=== PATIENT | male | born 1940 | race Caucasian/White ===

== ENCOUNTER → 2019-08-08 | Outpatient (CLI) | payer MEDICARE, BC ==
[2019-08-08 20:43] LABS: HIV 1 AB Non-Reactive (Non-Reactive); HIV 2 AB Non-Reactive (Non-Reactive); HIV AB P24 Non-Reactive (Non-Reactive); HIV P24 AG Non-Reactive (Non-Reactive)
[2019-08-08 20:53] LABS: Hepatitis A Antibody IgM Non-Reactive (Non-Reactive); Hepatitis B Surface Antigen Non-Reactive (Non-Reactive); Hepatitis C IgG Antibody Non-Reactive (Non-Reactive)
== END | disposition home or self-care (01) ==
LOC: LABWHC1 10:55
PROVIDERS: ATTEND Internal Medicine Gastroenterology
DX: K52.9 Noninfective gastroenteritis and colitis, unspecified (principal); A04.71 Enterocolitis due to Clostridium difficile, recurrent; Z52.9 Donor of unspecified organ or tissue
CPT/HCPCS: 36415; 86709; 86780; 86803; 87340; 87390

== ENCOUNTER → 2021-06-02 | Outpatient (CLI) | payer MEDICARE, BC ==
--- NOTE | 2021-06-02 11:54 | XR ---
EXAMINATION TYPE: XR wrist complete LT DATE OF EXAM: 06/02/2021 COMPARISON: None HISTORY: Left wrist pain TECHNIQUE: 4 view left wrist FINDINGS: Degenerative joint changes are present through the radial carpal junction. Degenerative car pal joint changes are evident. On the navicular view, there is some slight increased scapholunate space is 0.4 cm. Scapholunate disa ssociation is not excluded. The cyst appears to be within the distal scaphoid. No acute fractures are evident. The soft tissues may have mild prominence. IMPRESSION: 1. 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 No acute osseous abnormality evident. 2. Scapholunate disassociation not entirely excluded. This could be further evaluated with MRI.
[2021-06-02 19:43] LABS: Basophils # (A) 0.05 X 10*3/uL (0.00-0.10); Eosinophils # (A) 0.51 X 10*3/uL (0.04-0.35); Eosinophils % (A) 10.5 %; HCT 41.6 % (39.6-50.0); HGB 13.5 g/dL (13.0-17.0); Lymphocytes % (A) 22.5 %; MCH 32.4 pg (27.0-32.0); MCHC 32.5 g/dL (32.0-37.0); MCV 99.8 fL (80.0-97.0); Mean Platelet Volume 10.3 fL (9.5-12.2); Monocytes # (A) 0.57 X 10*3/uL (0.20-1.00); Monocytes % (A) 11.7 %; Neutrophils # (A) 2.64 X 10*3/uL (1.80-7.70); Neutrophils % (A) 54.1 %; Platelet Count 304 X 10*3/uL (140-440); RBC 4.17 X 10*6/uL (4.40-5.60); RDW 12.4 % (11.5-14.5); WBC 4.88 X 10*3/uL (4.50-10.00)
[2021-06-03 02:28] LABS: African American GFR (CKD) 66.7 (60.0-200.0); Albumin 4.2 g/dL (3.80-4.90); Albumin/Globulin Ratio 1.68 (1.60-3.17); Anion Gap 9.9 mmol/L (4.00-12.00); BUN/Creat Ratio 19.17 Ratio (12.00-20.00); Calcium 9.6 mg/dL (8.7-10.3); Carbon Dioxide 22.1 mmol/L (21.6-31.8); Chol/HDL Ratio 3.13; Globulin 2.5 g/dL (1.6-3.3); LDL Cholesterol,Calculated 79.2 mg/dL (0.0-131.0); Non-African American GFR(CKD) 57.6 (60.0-200.0); Potassium 4.5 mmol/L (3.5-5.5); Total Bilirubin 0.6 mg/dL (0.2-1.2); Total Protein 6.7 g/dL (6.2-8.2); VLDL Calculation 18.8 mg/dL (5.00-40.00)
[2021-06-03 02:59] LABS: Folate, Serum 17.4 ng/mL; PSA Annual Screen 10.2 ng/mL (0.0-4.0)
== END | disposition home or self-care (01) ==
LOC: LABWHC1 10:17
PROVIDERS: ATTEND Internal Medicine
DX: Z12.5 Encounter for screening for malignant neoplasm of prostate (principal); E03.9 Hypothyroidism, unspecified; E53.8 Deficiency of other specified B group vitamins; E55.9 Vitamin D deficiency, unspecified; E78.5 Hyperlipidemia, unspecified; M19.032 Primary osteoarthritis, left wrist; I10 Essential (primary) hypertension
CPT/HCPCS: 80061; 80053; 82607; 82746; 84443; 85025; 82306; 73110; 36415; G0103